=== PATIENT | male | born 1990 | race Caucasian/White ===

== ENCOUNTER 2018-06-23 20:19 | Emergency (ER) | payer MEDICAID, OTHER ==
[~2018-06-23] VITALS: Ht 172.7 cm; Wt 81.0 kg
[2018-06-23 20:31] VITALS: Ht 172.7 cm; Wt 81.0 kg
--- NOTE | 2018-06-23 22:38 | ERD ---
ER Documentation Chief Complaint Chief Complaint HEMATURIA TODAY ONLY, PT REPORTS HX OF PREVIOUS HEMATURIA EVENTS HPI This is a 28-year-old male who presents emergency department with complaints of blood in urine that started today. Patient stated that he has been working out for the past few days except today. Denies headache, dizziness, blurry vision, changes in vision, neck pain, throat pain, neck stiffness, difficulty swallowing, difficulty breathing lying flat, loss of bowel bladder control, urinary symptoms, trauma, injury, falls, recent surgery in the last 3 weeks, recent travel, recent long travel, leg pain, difficulty walking, numbness or tingling sensation, recent exposure to any illness, recent antibiotic use in the last 3 months, fever, chills. ROS All systems reviewed and are negative except as per history of present illness. Medications Home Meds Active Scripts Acetaminophen* (Tylophen*) 500 Mg Capsule, 1 CAP PO Q6H PRN for PAIN AND OR ELEVATED TEMP, #20 CAP Prov:LAYTON QUILES 06/24/18 Allergies Allergies: Coded Allergies: No Known Allergy (Unverified , 11/19/15) PMhx/Soc Medical and Surgical Hx: pt denies Medical Hx, pt denies Surgical Hx Hx Alcohol Use: Yes Hx Substance Use: No Hx Tobacco Use: No Smoking Status: Never smoker Physical Exam Vitals Physical Exam Const: No acute distress Head: Atraumatic Eyes: Normal Conjunctiva ENT: Normal External Ears, Nose and Mouth. Neck: Full range of motion. No meningismus. Resp: Clear to auscultation bilaterally Cardio: Regular rate and rhythm, no murmurs Abd: Soft, non tender, non distended. Normal bowel sounds. Negative Fairchild sign. Negative Antonia sign (heel jar test). Negative psoas sign. Negative Rovsing sign. : No lesions. Bilateral inguinal areas no swelling/discoloration/bulging/point of tenderness. No discharge in penis. Skin: No petechiae or rashes Back: No midline or flank tenderness. No CVA tenderness. Ext: No cyanosis, or edema Neur: Awake and alert. No neurological deficits. Psych: Normal Mood and Affect Results 24 hrs Laboratory Tests Test 06/23/18 22:52 White Blood Count 8.5 10^3/ul Red Blood Count 4.80 10^6/ul Hemoglobin 13.6 g/dl Hematocrit 42.1 % Mean Corpuscular Volume 87.7 fl Mean Corpuscular Hemoglobin 28.3 pg Mean Corpuscular Hemoglobin Concent 32.3 g/dl Red Cell Distribution Width 13.2 % Platelet Count 226 10^3/UL Mean Platelet Volume 10.5 fl Immature Granulocytes % 0.400 % Neutrophils % 49.1 % Lymphocytes % 38.8 % Monocytes % 7.6 % Eosinophils % 3.7 % Basophils % 0.4 % Nucleated Red Blood Cells % 0.0 /100WBC Immature Granulocytes # 0.030 10^3/ul Neutrophils # 4.2 10^3/ul Lymphocytes # 3.3 10^3/ul Monocytes # 0.6 10^3/ul Eosinophils # 0.3 10^3/ul Basophils # 0.0 10^3/ul Nucleated Red Blood Cells # 0.0 10^3/ul Prothrombin Time 12.7 Sec Prothrombin Time Ratio 1.0 INR International Normalized Ratio 0.94 Activated Partial Thromboplast Time 26.5 Sec Urine Color YELLOW Urine Clarity CLEAR Urine pH 6.0 Urine Specific [place] 1.023 Urine Ketones NEGATIVE mg/dL Urine Nitrite NEGATIVE mg/dL Urine Bilirubin NEGATIVE mg/dL Urine Urobilinogen NEGATIVE mg/dL Urine Leukocyte Esterase TRACE Nabeel/ul Urine Microscopic RBC 1 /HPF Urine Microscopic WBC 14 /HPF Urine Hemoglobin NEGATIVE mg/dL Urine Myoglobin, Quantitative <28 mcg/L Urine Glucose NEGATIVE mg/dL Urine Total Protein NEGATIVE mg/dl Sodium Level 141 mmol/L Potassium Level 4.0 mmol/L Chloride Level 103 mmol/L Carbon Dioxide Level 26 mmol/L Anion Gap 12 Blood Urea Nitrogen 20 mg/dl Creatinine 1.10 mg/dl Est Glomerular Filtrat Rate mL/min > 60 mL/min Glucose Level 87 mg/dl Calcium Level 10.0 mg/dl Total Bilirubin 0.1 mg/dl Direct Bilirubin 0.00 mg/dl Indirect Bilirubin 0.1 mg/dl Aspartate Amino Transf (AST/SGOT) 24 IU/L Alanine Aminotransferase (ALT/SGPT) 30 IU/L Alkaline Phosphatase 68 IU/L Creatine Kinase 119 IU/L Creatine Kinase Index 0.4 Creatinine Kinase MB (Mass) 0.50 ng/ml Troponin I < 0.012 ng/ml Total Protein 7.9 g/dl Albumin 4.6 g/dl Globulin 3.30 g/dl Albumin/Globulin Ratio 1.39 Chlamydia trachomatis RNA (TMA) DETECTED Chlamydia/GC Comment SEE NOTE Neisseria gonorrhoeae RNA (TMA) NOT DETECTED Current Medications Medications Dose Sig/Sree Start Time Status Last (Trade) Ordered Route PRN Stop Time Admin Dose Reason Admin Sodium 1,000 ml @ Q1H ONCE 06/23/18 DC 06/23/18 Chloride 1,000 mls/hr IV 23:00 23:07 06/23/18 23:59 Procedures/MDM Diagnostic tests: Gonorrhea and Chlamydia: Urinalysis: Reviewed. Blood works: Reviewed. Treatment: Saline lock. Normal saline IV bolus. Re-evaluation: Denies pain. Differential diagnosis I have low suspicion for renal failure, rhabdomyolysis, sepsis, hemorrhage. Final diagnosis: Hematuria. Prescription: Tylenol. Follow-up with PCP in the next 24-48 hours. PCP to refer patient to Urologist if symptoms persist in the next 3-4 days. Come back here in the emergency department for any new symptoms or any worsening symptoms. All questions and concerns were answered. Patient and family members verbalized understanding and agreed with plan of care. Hemodynamically stable on discharge. Departure Diagnosis: Primary Impression: Hematuria Condition: Stable Additional Instructions: Follow-up with PCP in the next 24-48 hours. PCP to refer patient to urologist if symptoms persist in the next 3-4 days. Come back here in the emergency department for any new symptoms or any worsening symptoms. LAYTON QUILES Jun 23, 2018 22:38
[2018-06-23] MEDS ORDERED: SOD CHLORIDE 0.9% 1,000 ML IV ONE (23:00)
[2018-06-24] MEDS ORDERED: ACET500C5 PO (00:41)
[2018-06-24 01:05] VITALS: BP 111/69; PULSE 53; RESP 16
== END 2018-06-24 01:06 | disposition home or self-care (01) ==
LOC: FTE 20:19
DX: R31.9 Hematuria, unspecified (principal)
CPT/HCPCS: 36415; 80053; 81001; 82550; 82553; 83874; 84484; 85025; 85610; 85730; 87591; 99284; J7030